=== PATIENT | male | born 1965 | race Native Hawaiian/Other Pacific Islander ===

== ENCOUNTER 2018-12-19 10:00 | Outpatient (CLI) | payer OTHER | END 2018-12-19 10:01 | disposition home or self-care (01) | LOC: C.LAB 10:00 ==

== ENCOUNTER 2019-03-22 05:17 | Outpatient (CLI) | payer OTHER | END 2019-03-22 05:18 | disposition home or self-care (01) | LOC: C.LAB 05:17 | DX: E11.65 Type 2 diabetes mellitus with hyperglycemia (principal) ==